=== PATIENT | female | born 1960 | race Native Hawaiian/Other Pacific Islander ===

== ENCOUNTER 2018-03-15 21:45 | Emergency (ER) | payer OTHER ==
[2018-03-15 22:01] VITALS: BMI 21.4
[2018-03-15 22:03] VITALS: PULSE 81
--- NOTE | 2018-03-15 22:19 | ED PDOC ---
Arrival/HPI - General Historian: Patient - History of Present Illness Time/Duration: < week Symptom Onset: Gradual Symptom Course: Unchanged Quality: Pressure Severity Level: 1 Activities at Onset: Rest Context: Home <Dina Toscano - Last Filed: 03/15/18 23:54> <Linus Smith - Last Filed: 03/16/18 00:27> - General Chief Complaint: Shortness Of Breath Time Seen by Provider: 03/15/18 21:48 - History of Present Illness Narrative History of Present Illness (Text): 03/15/18 22:15 Pt is a 57 yr old female with PMH seasonal allergies present to the ED with poison grace exacerbation after receiving MedroDose kym and hydroxyzine from her PMD 4 days ago. Pt states she is also has a cough and subjective fever for the past 2 days and the itching of her rash is getting worse. Says she has skin and breathing issues every spring/summer. Denies chest pain, nausea, vomiting, diarrhea or any other complaint at this time. 03/15/18 23:55 (Dina Toscano) Past Medical History - Provider Review Nursing Documentation Reviewed: Yes - Travel History Have you recently traveled outside [place] w/in the past 3 mons?: No - Reproductive Menopause: Yes - Cardiac Hx Cardiac Disorders: No - Pulmonary Hx Respiratory Disorders: No - Neurological Hx Neurological Disorder: No - HEENT Hx HEENT Disorder: Yes (GLASSES) - Renal Hx Renal Disorder: No - Endocrine/Metabolic Hx Endocrine Disorders: No - Hematological/Oncological Hx Blood Disorders: Yes Hx Anemia: Yes - Integumentary Hx Dermatological Disorder: No - Musculoskeletal/Rheumatological Hx Musculoskeletal Disorders: No - Gastrointestinal Hx Gastrointestinal Disorders: Yes Hx Gastroesophageal Reflux: Yes - Genitourinary/Gynecological Hx Genitourinary Disorders: Yes (POST MENPAUSAL BLEEDING) Other/Comment: CERVICAL POLYP - Psychiatric Hx Psychophysiologic Disorder: Yes Hx Anxiety: Yes Hx Substance Use: No - Surgical History Hx Breast Biopsy: Yes (BILAT BRAEST) Other/Comment: LAPAROSCOPY ORACLE SPECIALIST PROBLEM - Anesthesia Hx Anesthesia: Yes Hx Anesthesia Reactions: No Hx Malignant Hyperthermia: No <Dina Toscano - Last Filed: 03/15/18 23:54> Family/Social History - Physician Review Nursing Documentation Reviewed: Yes Family/Social History: Unknown Family HX Smoking Status: Never Smoked Hx Alcohol Use: No Hx Substance Use: No <Dina Toscano - Last Filed: 03/15/18 23:54> Allergies/Home Meds <Dina Toscano - Last Filed: 03/15/18 23:54> <Linus Smith - Last Filed: 03/16/18 00:27> Allergies/Adverse Reactions: Allergies No Known Allergies Allergy (Verified 03/15/18 22:06) Home Medications: Home Meds Medication Instructions Recorded Confirmed Clonazepam 1 mg PO HS PRN 08/02/14 03/15/18 Ergocalciferol 50,000 iu PO QWK 08/02/14 03/15/18 Iron Polysaccharide Complex [Ezfe 200 mg PO DAILY 08/02/14 03/15/18 200] Zolpidem Tartrate [Zolpidem] 10 mg PO HS PRN 08/02/14 03/15/18 Review of Systems - Review of Systems Constitutional: Normal Eyes: Normal ENT: Normal Respiratory: Normal, Cough. absent: SOB Cardiovascular: Normal. absent: Chest Pain Gastrointestinal: Normal Genitourinary Female: Normal Musculoskeletal: Normal Skin: Rash, Pruritis Neurological: Normal Endocrine: Normal Hemo/Lymphatic: Normal Psychiatric: Normal <Dina Toscano - Last Filed: 03/15/18 23:54> Physical Exam Vital Signs Reviewed: Yes Temperature: Afebrile Blood Pressure: Normal Pulse: Regular Respiratory Rate: Normal Appearance: Positive for: Well-Appearing, Non-Toxic, Comfortable Pain Distress: None Mental Status: Positive for: Alert and Oriented X 3 - Systems Exam Head: Present: Atraumatic, Normocephalic Pupils: Present: PERRL Extroacular Muscles: Present: EOMI Conjunctiva: Present: Normal Mouth: Present: Moist Mucous Membranes Neck: Present: Normal Range of Motion Respiratory/Chest: Present: Clear to Auscultation, Good Air Exchange. No: Respiratory Distress, Accessory Muscle Use, Wheezes, Decreased Breath Sounds, Rales, Rhonchi Cardiovascular: Present: Regular Rate and Rhythm, Normal S1, S2. No: Murmurs Abdomen: Present: Normal Bowel Sounds. No: Tenderness, Distention, Peritoneal Signs Back: Present: Normal Inspection Upper Extremity: Present: Normal Inspection. No: Cyanosis, Edema Lower Extremity: Present: Normal Inspection. No: Edema Neurological: Present: GCS=15, CN II-XII Intact, Speech Normal, Motor Func Grossly Intact Skin: Present: Warm, Dry, Normal Color, Other (poison grace rash scattered over the LE and UE and neck). No: Rashes, Diaphoretic Psychiatric: Present: Alert, Oriented x 3, Normal Insight, Normal Concentration <Dina Toscano - Last Filed: 03/15/18 23:54> Vital Signs Temp Pulse Resp BP Pulse Ox 03/16/18 00:23 97.4 F L 81 17 127/76 18 L 03/15/18 22:45 18 03/15/18 22:02 97.9 F 81 18 137/79 100 Medical Decision Making Reassessment Condition: Re-examined, Improved (Lungs CTAB, no adventitious sounds; ventilating well) - EKG Interpretation Interpreted by ED Physician: Yes (NSR; Low Voltage QRS; Rate 63) <Dina Toscano - Last Filed: 03/15/18 23:54> <Linus Smith - Last Filed: 03/16/18 00:27> ED Course and Treatment: 03/15/18 22:19 Impression Pt is a 57 yr old female with PMH seasonal allergies present to the ED with poison grace exacerbation after receiving MedroDose kym and hydroxyzine from her PMD 3 days ago. Working Dx: PNA, COPD, seasonal allergies Plan ECG CXR assess and dispo Progress note 03/15/18 23:08 Pt feels better and less chest tightness after neb tx CXR does not indicate active disease process will give decadron IM and follow up with PMD on Saturday (Dina Toscano) - Lab Interpretations Lab Results: 03/15/18 23:00 03/15/18 23:00 Lab Results 03/15/18 23:00: Sodium 142, Potassium 3.7, Chloride 103, Carbon Dioxide 26, Anion Gap 16, BUN 13, Creatinine 0.7, Est GFR ( Amer) > 60, Est GFR (Non- Af Amer) > 60, Random Glucose 111 H, Calcium 8.8, Total Bilirubin 0.4, AST 21, ALT 17, Alkaline Phosphatase 113, Lactate Dehydrogenase 410, Total Creatine Kinase 29 L, Troponin I < 0.01, Total Protein 7.0, Albumin 4.2, Globulin 2.8, Albumin/Globulin Ratio 1.5 03/15/18 23:00: Urine Color Yellow, Urine Appearance Sl cloudy, Urine pH 6.5, Ur Specific [place] <= 1.005, Urine Protein Negative, Urine Glucose (UA) Negative, Urine Ketones Negative, Urine Blood Negative, Urine Nitrate Negative, Urine Bilirubin Negative, Urine Urobilinogen 0.2, Ur Leukocyte Esterase Small H , Urine RBC 0 - 2, Urine WBC 2 - 5, Ur Epithelial Cells 0 - 2, Urine Bacteria Rare 03/15/18 23:00: WBC 14.0 H, RBC 4.22, Hgb 12.2, Hct 37.9, MCV 89.8, MCH 28.9, MCHC 32.2, RDW 12.6, Plt Count 302, MPV 10.4, Gran % 70.5 H, Lymph % (Auto) 21.2 L, Alexander % (Auto) 8.0 H, Eos % (Auto) 0.1 L, Baso % (Auto) 0.2, Gran # 9.88 H, Lymph # (Auto) 3.0, Alexander # (Auto) 1.1 H, Eos # (Auto) 0.0, Baso # (Auto) 0.03 - RAD Interpretation Radiology Orders: 03/15/18 22:11 CHEST PORTABLE [RAD] Stat - Medication Orders Current Medication Orders: Discontinued Medications Albuterol/Ipratropium (Duoneb 3 Mg/0.5 Mg (3 Ml) Ud) 3 ml IH STAT STA Stop: 03/15/18 22:25 Last Admin: 03/15/18 22:34 Dose: 3 ml Dexamethasone (Decadron Inj) 10 mg IVP STAT STA Stop: 03/15/18 23:53 Last Admin: 03/16/18 00:06 Dose: 10 mg IVP Administration Document 03/16/18 00:06 MARC (Rec: 03/16/18 00:06 Ashley [id number]) Charges for Administration # of IVP Administrations 1 - 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 <Linus Smith - Last Filed: 03/16/18 00:27> Disposition/Present on Arrival - Present on Arrival Any Indicators Present on Arrival: Yes History of DVT/PE: No History of Uncontrolled Diabetes: No Urinary Catheter: No History of Decub. Ulcer: No History Surgical Site Infection Following: None - Disposition Have Diagnosis and Disposition been Completed?: Yes Disposition Time: 23:59 Patient Plan: Discharge <Dina Toscano - Last Filed: 03/15/18 23:54> <Linus Smith - Last Filed: 03/16/18 00:27> - Disposition Diagnosis: Poison grace dermatitis, Seasonal allergies, Hayfever Disposition: HOME/ ROUTINE Patient Problems: Current Active Problems Problem Status Onset Hayfever Acute Poison grace dermatitis Acute Seasonal allergies Acute Condition: GOOD Discharge Instructions (ExitCare): Poison Grace, Seasonal Allergies in Adults Additional Instructions: Oneal, thank you for letting us take care of you today. Your provider was PHOEBE Toscano. You were treated for Seasonal Allergies and Poison Grace exacerbation. The emergency medical care you received today was directed at your acute symptoms. If you were prescribed any medication, please fill it and take as directed. It may take several days for your symptoms to resolve. Return to the Emergency Department if your symptoms worsen, do not improve, or if you have any other problems. Please see your Primary Doctor on Saturday for on-going care. If you experience any alarming signs such as sudden shortness of breath, high fever, or worsening of rash, return to the emergency department Use your Ventolin inhaler as needed Please contact your doctor or call one of the physicians/clinics you have been referred to that are listed on the Patient Visit Information form that is included in your discharge packet. Bring any paperwork you were given at discharge with you along with any medications you are taking to your follow up visit. Our treatment cannot replace ongoing medical care by a primary care provider (PCP) outside of the emergency department. Thank you for allowing the [facility] team to be part of your care today. If you had an X-Ray or CT scan: A Radiologist will review the ED reading if any change in treatment is needed we will contact you. If you had a blood, urine, or wound culture: It will take several days for the results, if any change in treatment is needed we will contact you. Prescriptions: DiphenhydrAMINE [Benadryl] 25 mg PO Q8 #15 cap Referrals: Tonia Casas MD [Primary Care Provider] - Follow up with primary Forms: [employer] (Khmer)
[2018-03-15] MEDS ORDERED: Albuterol-Ipratrop 3 mg / 0.5 (3 ml) UD IH STA (22:24)
[2018-03-15 23:22] LABS: BASO # 0.03 K/mm3 (0.0-2.0); BASO % 0.2 % (0.0-3.0); EOS % 0.1 % (1.5-5.0); GRAN # 9.88 (1.4-6.5); GRAN % 70.5 % (50.0-68.0); HEMOGLOBIN 12.2 g/dL (12.0-16.0); LYMPH % 21.2 % (22.0-35.0); MEAN CELL VOLUME 89.8 fl (80.0-105.0); MEAN CORPUSCULAR HEMOGLOBIN 28.9 pg (25.0-35.0); MEAN CORPUSCULAR HGB CONC 32.2 g/dl (31.0-37.0); MEAN PLATELET VOLUME 10.4 fl (7.0-11.0); MONO # 1.1 (0.1-0.6); RBC 4.22 10^6/uL (3.5-6.1); RED CELL DISTRIBUTION WIDTH 12.6 % (11.5-14.5)
[2018-03-15 23:23] LABS: PH,URINE 6.5 (4.7-8.0); URINE BILIRUBIN NEGATIVE (NEGATIVE); URINE BLOOD NEGATIVE (NEGATIVE); URINE GLUCOSE (UA) NEGATIVE (NEGATIVE); URINE LEUKOCYTE ESTERASE SMALL Leu/uL (NEGATIVE); URINE PROTEIN NEGATIVE mg/dL (<30 mg/dL); URINE UROBILINOGEN 0.2 E.U./dL (<1 E.U./dL)
[2018-03-15 23:28] LABS: ALB/GLOB RATIO 1.5 (1.1-1.8); ALBUMIN 4.2 g/dL (3.0-4.8); ALT/SGPT 17 U/L (7-56); AST/SGOT 21 U/L (14-36); BLOOD UREA NITROGEN 13 mg/dL (7-21); CALCIUM 8.8 mg/dL (8.4-10.5); GFR AFRICAN-AMERICAN > 60; GFR NON-AFRICAN AMERICAN > 60
[2018-03-15 23:39] LABS: TROPONIN I < 0.01 ng/mL
[2018-03-15 23:57] LABS: URINE APPEARANCE SL CLOUDY (CLEAR); URINE COLOR YELLOW (YELLOW)
[2018-03-16 00:02] LABS: URINE BACTERIA RARE (NEG); URINE EPITHELIAL CELLS 0 - 2 /hpf (0-5); URINE RBC 0 - 2 /hpf (0-2)
[2018-03-16 00:24] VITALS: BP 127/76; RESP 17; TEMP 97.4; O2SAT 18
--- NOTE | 2018-03-16 09:55 | RAD ---
HISTORY: cough and chest tightness COMPARISON: No prior. FINDINGS: LUNGS: Poor inspiration with low lung volumes, crowded bronchovascular markings and minor bibasilar atelectasis. PLEURA: No significant pleural effusion identified, no pneumothorax apparent. CARDIOVASCULAR: Heart appears borderline enlarged OSSEOUS STRUCTURES: No significant abnormalities. VISUALIZED UPPER ABDOMEN: Normal. OTHER FINDINGS: None. IMPRESSION: Poor inspiration with low lung volumes, crowded bronchovascular markings and minor bibasilar atelectasis.
--- NOTE | 2018-03-16 15:41 | CARD ---
APPROVED REPORT EKG Measurement Heart [id number] <Conclusion> Normal sinus rhythm Low voltage QRS Cannot rule out Anteroseptal infarct, age undetermined Abnormal ECG
== END 2018-03-16 00:28 | disposition home or self-care (01) ==
LOC: ED 21:45
DX: J30.2 Other seasonal allergic rhinitis (principal); L25.5 Unspecified contact dermatitis due to plants, except food; D64.9 Anemia, unspecified
CPT/HCPCS: 71045; 80053; 81001; 82550; 83615; 84484; 85025; 87086; 93005; 96374; 99283; J1100